=== PATIENT | male | born 1985 | race Caucasian/White ===

== ENCOUNTER → 2019-05-21 | Outpatient (CLI) | payer OTHER ==
[~2019-05-21] MED LIST: HYDROCODON-ACE1 EAC5 PO; NERVE MED; OXYCODONE HCL 55 MG PO; VICODIN 5-3001 EACH PO; ZANAFLEX4 M2 PO
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
== END ==
LOC: M.PC 09:30
DX: M79.604 Pain in right leg (principal); M79.605 Pain in left leg; I10 Essential (primary) hypertension

== ENCOUNTER → 2019-06-18 | Outpatient (CLI) | payer OTHER ==
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
== END ==
LOC: M.PC 05:13
DX: G89.29 Other chronic pain (principal); Z79.84 Long term (current) use of oral hypoglycemic drugs; Z79.899 Other long term (current) drug therapy; Z88.1 Allergy status to other antibiotic agents

== ENCOUNTER → 2019-07-16 | Outpatient (CLI) | payer OTHER ==
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
== END ==
LOC: M.PC 04:08
DX: G89.21 Chronic pain due to trauma (principal); F11.20 Opioid dependence, uncomplicated; Z79.899 Other long term (current) drug therapy; Z87.81 Personal history of (healed) traumatic fracture

== ENCOUNTER → 2019-08-13 | Outpatient (CLI) | payer OTHER ==
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
== END ==
LOC: M.PC 05:07
PROVIDERS: ATTEND Anesthesiology Pain Medicine
DX: G89.29 Other chronic pain (principal); Z79.899 Other long term (current) drug therapy